=== PATIENT | female | born 1995 | race Caucasian/White ===

== ENCOUNTER 2025-02-08 16:04 | Outpatient (REF) | payer MEDICAID, SELFPAY ==
--- OUTSIDE RECORDS SUMMARY | 2025-02-08 10:20 | XMS_ITS | Encounter Summary ---
Author Organization [employer] Address [address] [facility] 7 [place] [address] Care Team Providers Care Cna Gna Name Role Phone Unavailable Primary Care Provider Unavailabl e Reason for Visit * Reason Comments UTI Symptoms Encounter Details Date Type Department Care Team (Late st Contact Info) Description 02/08/2025 10:20 AM EDT Office Visit [facility] [address] [place] [phone] Samy Han MD [address] [place] [address] Dysuria (Primary Dx); History of bilateral tubal ligation Social History Tobacco Use Types Packs/Day Years Used Date Smoking Tobacco: Never Assessed Comments Unknown Sex and Gender Information Value Date Recorded Sex Assigned at Female 02/08/2025 9:59 AM EDT Legal Sex Female 9:57 AM EDT Gender Identity Female 02/08/2025 9:59 AM EDT Sexual Orientation Straight 02/08/2025 9: 59 AM EDT documented as of this encounter Last Filed Vital Signs Vital Sign Reading Time Taken Comments Blood Pressure 129/71 02/08/2025 10:17 AM EDT Pulse 85 02/08/2025 10:17 AM EDT Temperature 36.4 C (97.5 F) 02/08/2025 10:17 AM EDT Respiratory Rate 18 02/08/2025 10:17 AM EDT Oxygen Saturation 98% 02/08/2025 10:17 AM EDT Inhaled Oxygen Concentration - - Weight 92.2 kg (203 lb 3.2 oz) 02/08/2025 10:17 AM EDT Height 152.4 cm (5') 02/08/2025 10:17 AM EDT Body Mass Index 39.68 02/08/2025 10:17 AM EDT documented in this encounter Progress Notes * Samy Han MD - 02/08/2025 10:20 AM EDT Subjective Patient ID: Sp Berg is a 29 y.o. female, new patient. Last saw PCP years ago. 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 No burning or frequency. Denies fever, chills, n/v, vaginal discharge, abdominal or flank pain. Past med history: neg Pas surgical history: BTL Family history: daughter has h/o asthma, grandmother had breast cancer in 60s or 70s. Lives with 2 children ages 11 and 8 yo in friend's house. LMP=2 weeks ago. 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 Never Smoked Occasional EtOH No Illicit substances. The following portions of the chart were reviewed this encounter and updated as appropriate: Allergies Meds Problems Med Hx Surg Hx Fam Hx Review of Systems Constitutional: Negative for fever. Respiratory: Negative for shortness of breath. Cardiovascular: Negative for chest pain. Gastrointestinal: Positive for abdominal pain. Genitourinary: Positive for dysuria and urgency. Negative for flank pain and frequency. Skin: Negative for rash. Neurological: Negative for headaches. Objective Physical Exam Constitutional: Appearance: Normal appearance. HENT: Right Ear: Tympanic membrane, ear canal and external ear normal. Left Ear: Tympanic membrane, ear canal and external ear normal. Nose: Nose normal. Mouth/Throat: Mouth: Mucous membranes are moist. Pharynx: Oropharynx is clear. Eyes: Conjunctiva/sclera: Conjunctivae normal. Pupils: Pupils are equal, round, and reactive to light. Cardiovascular: Rate and Rhythm: Normal rate and regular rhythm. Heart sounds: No murmur heard. Pulmonary: Effort: Pulmonary effort is normal. Breath sounds: Normal breath sounds. Abdominal: General: Abdomen is flat. Palpations: Abdomen is soft. Tenderness: There is no abdominal tenderness. There is no right CVA tenderness or left CVA tenderness. Musculoskeletal: General: Normal range of motion. Cervical back: No tenderness. Skin: Findings: No rash. Neurological: Mental Status: She is alert. Gait: Gait is intact. Psychiatric: Mood and Affect: Mood normal. Behavior: Behavior normal. Procedures Assessment/Plan Diagnoses and all orders for this visit: Dysuria UA: Positive nitrite, leuk Urine culture pending. Prescribed Macrobid, ibuprofen. Return to clinic if not improving or if nausea, vomiting, fever,, chills, or flank pain occurs. - POCT urinalysis dipstick manually resulted - POCT , urine manually resulted - Culture, Urine, Routine Other orders - nitrofurantoin, macrocrystal-monohydrate, (Macrobid) 100 MG capsule; Take 1 capsule (100 mg) by mouth 2 times daily for 5 days. - ibuprofen 400 MG tablet; Take 1 tablet (400 mg) by mouth every 6 (six) hours if needed for moderate pain or fever for up to 30 doses. documented in this encounter Plan of Treatment Upcoming Encounters Date Type Department Care Team (Late st Contact Info) Description 04/11/2025 10:15 AM EST Office Visit [facility] [address] [place] [address] [phone] Becka Mcconnell MD [address] [place] [phone] Scheduled Orders Name Type Priority Associated Diagnoses Orde r Schedule Culture, Urine, Routine Microbiology Routine Dysuria Ordered: 02/08/2025 documented as of this encounter Procedures Procedure Name Priority Date/Time Associated Diagnosis Comments POCT , URINE Routine 02/08/2025 11:22 AM EDT Dysuria POCT URINALYSIS DIPSTICK Routine 02/08/2025 11:22 AM EDT Dysuria documented in this encounter Results * POCT , urine manually resulted (02/08/2025 11:22 AM EDT) Preg Test, Ur Negative Negative, Indeterminate, None Detected, Invalid, Specimen unsatisfactory for evaluation, Weakly Positive, 2+ Urine 02/08/2025 11:2 2 AM EDT Samy Han MD POINT OF CARE TEST ENTER/EDIT OR DERABLES Final Result * (ABNORMAL) POCT urinalysis dipstick manually resulted (02/08/2025 11:22 AM EDT) Color, UA Yellow Clarity, UA Clear Glucose, UA Negative Bilirubin, UA Negative Ketones, UA Negative Spec Grav, UA 1.020 Blood, UA Positive(A) Negative, None Detected Comment:small pH, UA 7.0 Protein, UA Few 15 Comment:30 mg/dL Urobilinogen, UA 0.2 Leukocytes, UA Negative Negative, Rare, Trace Nitrite, UA Positive(A) Negative, None Detected Urine 02/08/2025 11:2 2 AM EDT Samy Han MD POINT OF CARE TEST ENTER/EDIT OR DERABLES Final Result documented in this encounter Visit Diagnoses Diagnosis Dysuria- Primary History of bilateral tubal ligation documented in this encounter
--- OUTSIDE RECORDS SUMMARY | 2025-02-08 18:03 | XMS_ITS | Clinical Summary ---
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 10 capsule 02/08/2025 02/14/20 25 Active ibuprofen 400 MG tablet Take 1 tablet (400 mg) by mouth every 6 (six) hours if needed for moderate pain or fever for up to 30 doses. 30 tablet 02/08/2025 Active Active Problems Problem Noted Date Diagnosed Date History of bilateral tubal ligation 02/08/2025 Encounters Date Type Department Care Team Description 02/08/2025 10:20 AM EDT Office Visit [facility] [address] [place] [address] Samy Han MD Dysuria (Primary Dx); History of bilateral tubal ligation 02/08/2025 Travel from Last 3 Months Social History Tobacco Use Types Packs/Day Years Used Date Smoking Tobacco: Never Assessed Comments Unknown Sex and Gender Information Value Date Recorded Sex Assigned at Female 02/08/2025 9:59 AM EDT Legal Sex Female 9:57 AM EDT Gender Identity Female 02/08/2025 9:59 AM EDT Sexual Orientation Straight 02/08/2025 9: 59 AM EDT Last Filed Vital Signs Vital Sign Reading [...] Mass Index 39.68 02/08/2025 10:17 AM EDT Plan of Treatment Upcoming Encounters Date Type Department Care Team (Late st Contact Info) Description 04/11/2025 10:15 AM EST Office Visit [facility] [address] [place] [address] Becka Mcconnell MD [address] [place] [address] Health Maintenance Due Date Last Done Comments Depression Screening 1993 HIV Screening 1993 SDOH Screening 1993 Disability Screening 1993 Alcohol/Substance Use Screening 2005 Tobacco Screening 2005 Family Planning (PISQ) 2008 HPV Vaccines (1 - 3-dose series) 2008 Hepatitis C Screening 09/04/2011 DTaP/Tdap/Td Vaccines (1 - Tdap) 2012 Hepatitis B Vaccines (1 of 3 - 19+ 3-dose series) 2012 Pap Smear 2014 Cervical Cancer Screening 09/04/2023 HPV/Cotest 09/04/2023 COVID-19 Vaccine (1 - 2023-2 5 season) 2025 Influenza Vaccine (#1) 2025 Zoster Vaccines (1 of 2) 09/04/2043 RSV Patients and Pa tients Aged 60 years or older (1 - 1-dose 75+ series) 2068 HIB Vaccines Aged Out No longer eligi ble based on patient's age to complete this topic Hepatitis A Vaccines Aged Out No long er eligible based on patient's age to complete this topic IPV Vaccines Aged Out No longer eligi ble based on patient's age to complete this topic Meningococcal B Vaccine Aged Out No l onger eligible based on patient's age to complete this topic Meningococcal Vaccine Aged Out No porsche dory eligible based on patient's age to complete this topic Pneumococcal Vaccine: Pediat rics (0 to 5 Years) and At-Risk Patients (6 to 49) Years Aged Out No longer eligible b ased on patient's age to complete this topic RSV under 20 months Aged Out No longe r eligible based on patient's age to complete this topic Rotavirus Vaccines Aged Out No longer eligible based on patient's age to complete this topic Procedures Procedure Name Priority Date/Time Associated Diagnosis Comments POCT , URINE Routine 02/08/2025 11:22 AM EDT Dysuria POCT URINALYSIS DIPSTICK Routine 02/08/2025 11:22 AM EDT Dysuria from Last 3 Months Results * POCT , urine manually resulted (02/08/2025 11:22 AM EDT) Preg Test, Ur Negative Negative, Indeterminate, None Detected, Invalid, Specimen unsatisfactory for evaluation, Weakly Positive, 2+ Urine 02/08/2025 11:2 2 AM EDT us Samy Han MD POINT OF CARE TEST [...] Detected Urine 02/08/2025 11:2 2 AM EDT us Samy Han MD POINT OF CARE TEST ENTER/EDIT OR DERABLES Final Result from Last 3 Months Insurance [facility] STANDARD
--- OUTSIDE RECORDS SUMMARY | 2025-02-08 18:04 | XMS_ITS | Encounter Summary ---
Author Organization [email or web address] Address [address] [place] [address] 7 [place] [address] Care Team Providers Care It Software Engineer Name Role Phone Unavailable Primary Care Provider Unavailabl e Encounter Details Date Type Department Care Team (Latest Contact Info) Description 02/08/2025 Travel Social History Tobacco Use Types Packs/Day Years Used Date Smoking Tobacco: Never Assessed Comments Unknown Sex and Gender Information Value Date Recorded Sex Assigned at Female 02/08/2025 9:59 AM EDT Legal Sex Female 9:57 AM EDT Gender Identity Female 02/08/2025 9:59 AM EDT Sexual Orientation Straight 02/08/2025 9: 59 AM EDT documented as of this encounter Plan of Treatment Upcoming Encounters Date Type Department Care Team (Late st Contact Info) Description 04/11/2025 10:15 AM EST Office Visit [facility] [address] [place] [address] Becka Mcconnell MD [address] [place] [address] documented as of this encounter Visit Diagnoses Not on filedocumented in this encounter
== END 2025-02-08 16:05 | disposition home or self-care (01) ==
LOC: HO.HHCLNP 16:04
PROVIDERS: Visit Provider Emergency Medicine
DX: R30.0 Dysuria (principal)
CPT/HCPCS: 87086; 87088; 87186

== ENCOUNTER 2025-03-07 15:46 | Outpatient (REF) | payer MEDICAID, SELFPAY ==
--- OUTSIDE RECORDS SUMMARY | 2025-03-07 20:44 | XMS_ITS | Encounter Summary ---
Author Organization [employer] Address [address] [place] [address] [place] [address] Care Team Providers Care Intelligence Applications Name Role Phone Unavailable Primary Care Provider Unavailabl e Encounter Details Date Type Department Care Team (Late st Contact Info) Description 03/07/2025 Orders Only [facility] [address] [place] [phone] Sebastian Graham MD [address] [place] [address] [phone] Screening for tuberculosis (Primary Dx) Social History Tobacco Use Types Packs/Day Years Used Date Smoking Tobacco: Never Assessed Comments Unknown Sex and Gender Information Value Date Recorded Sex Assigned at Female 02/08/2025 9:59 AM EDT Legal Sex Female 9:57 AM EDT Gender Identity Female 02/08/2025 9:59 AM EDT Sexual Orientation Straight 02/08/2025 9: 59 AM EDT documented as of this encounter Progress Notes * Kathleen Fournier RN - 03/07/2025 3:26 PM EDT T-Spot entered, patient needs for work documented in this encounter Plan of Treatment Upcoming Encounters Date Type Department Care Team (Late st Contact Info) Description 04/11/2025 10:15 AM EST Office Visit [facility] [address] [place] [address] [phone] Becka Mcconnell MD [address] [place] [address] [phone] Scheduled Orders Name Type Priority Associated Diagnoses Orde r Schedule T-SPOT .TB Lab Routine Screening for tuberculosis Expected: 03/07/2025 (Approximate), Expires: 03/07/2026 documented as of this encounter Visit Diagnoses Diagnosis Screening for tuberculosis- Primary Screening examination for pulmonary tuberculosis documented in this encounter
--- OUTSIDE RECORDS SUMMARY | 2025-03-07 20:44 | XMS_ITS | Clinical Summary ---
Author Organization [employer] Address [address] [facility] 7t [place] [address] Care Team Providers Care Injection Machine Operator Name Role Phone Unavailable Primary Care Provider Unavailabl e Allergies Active Allergy Reactions Criticality Noted Date Comments Acetaminophen Swelling 02/08/2025 Medications ibuprofen 400 MG tablet Take 1 tablet (400 mg) by mouth every 6 (six) hours if needed for moderate pain or fever for up to 30 doses. 30 tablet 5 Active nitrofurantoin, macrocrystal-mo nohydrate, (Macrobid) 100 MG capsule Take 1 capsule (100 mg) by mouth 2 times daily for 5 days. 10 capsule 5 02/14/20 25 benzonatate (Tessalon Perles) 100 MG capsuleIndicati ons:Viral URI with cough Take 1 capsule (100 mg) by mouth if needed in the morning, at noon, and at bedtime for cough for up to 7 days. Do not crush or chew. 20 capsule 5 03/02/20 25 Active Problems Problem Noted Date Diagnosed Date History of bilateral tubal ligation 02/08/2025 Encounters Date Type Department Care Team Description 03/07/2025 Orders Only [facility] [address] [place] [phone] Sebastian Graham MD Screening for tuberculosis (Primary Dx) 02/23/2025 10:00 AM EDT Office Visit [facility] [address] [place] [address] Sebastian Graham MD Viral URI with cough 02/23/2025 Travel 02/14/2025 Orders Only [facility] [address] [place] [phone] Devi Plummer RN 02/08/2025 10:20 AM EDT Office Visit [facility] [address] [place] [phone] Samy Han MD Dysuria (Primary Dx); History [...] Sign Reading Time Taken Comments Blood Pressure 139/80 02/23/2025 9:36 AM EDT Pulse 101 02/23/2025 9:36 AM EDT Temperature 36.7 C (98 F) 02/23/2025 9:36 AM EDT Respiratory Rate 18 02/23/2025 9:36 AM EDT Oxygen Saturation 99% 02/23/2025 9:36 AM EDT Inhaled Oxygen Concentration - - Weight 91.6 kg (202 lb) 02/23/2025 9:36 AM EDT Height 152.4 cm (5') 02/08/2025 10:17 AM EDT Body Mass Index 39.45 02/08/2025 10:17 AM EDT Plan of Treatment Upcoming Encounters Date Type Department Care Team (Late st Contact Info) Description 04/11/2025 10:15 AM EST Office Visit [facility] [address] [place] [phone] Becka Mcconnell MD [address] [place] [phone] Health Maintenance Due Date Last Done Comments Depression Screening 1993 SDOH Screening 1993 Disability Screening 1993 Alcohol/Substance Use Screening 2005 Tobacco Screening 2005 Family Planning (PISQ) 2008 HPV Vaccines (1 - 3-dose series) 2008 DTaP/Tdap/Td Vaccines (1 - Tdap) 2012 Hepatitis B Vaccines (1 of 3 - 19+ 3-dose series) 2012 Pap Smear 2014 Cervical Cancer Screening 09/04/2023 HPV/Cotest 09/04/2023 COVID-19 Vaccine (1 - 2023-2 5 season) 2025 Influenza Vaccine (#1) 2025 Zoster Vaccines (1 of 2) 09/04/2043 RSV Patients and Pa tients Aged 60 years or older (1 - 1-dose 75+ series) 2068 HIV Screening Completed 02/08/2025 Hepatitis C Screening Completed 02/08/2025 HIB Vaccines Aged Out No longer eligi [...] to 49) Years Aged Out No longer eligi ble based on patient's age to complete this topic RSV under 20 months Aged Out No longe r eligible based on patient's age to complete this topic Rotavirus Vaccines Aged Out No longer eligible based on patient's age to complete this topic Procedures Procedure Name Priority Date/Time Associated Diagnosis Comments POCT INFLUENZA B (ID NOW RAPID MOLECULAR) Routine 02/23/2025 9:57 AM EDT Viral URI with cough POCT INFLUENZA A (ID NOW RAPID MOLECULAR) Routine 02/23/2025 9:57 AM EDT Viral URI with cough POCT RAPID STREP A Routine 02/23/2025 9: 40 AM EDT Viral URI with cough POCT RAPID COVID ANTIGEN Routine 02/23/2025 9:40 AM EDT Viral URI with cough POCT , URINE Routine 02/08/2025 11:22 AM EDT Dysuria POCT URINALYSIS DIPSTICK Routine 02/08/2025 11:22 AM EDT Dysuria CULTURE, URINE, ROUTINE Routine 02/08/2025 11:13 AM EDT Dysuria HIV ANTIBODY/ANTIGEN ([place] [facility]) Routine 02/08/2025 HEPATITIS C ANTIBODY ([place] [facility]) Routine 02/08/2025 SYPHILIS ABS ([place] [facility]) Routine 02/08/2025 CHLAMYDIA/GONORRHEA THROAT SWAB ([place] [facility]) Routine 02/08/2025 CHLAMYDIA/GONORRHEA VAGINAL SWAB ([place] [facility]) Routine 02/08/2025 from Last 3 Months Results * Influenza B (ID NOW Rapid Molecular) (02/23/2025 9:57 AM EDT) Influenza B Negative Negative, Indeterminate [facility] Swab 02/23/2025 9:57 AM EDT us Sebastian Graham MD POINT OF CARE TEST ENTER/EDIT OR DERABLES Final Result Performing Organization Address [facility] Co de Phone Number [facility] [address] [place] [phone] * Influenza A (ID NOW Rapid Molecular) (02/23/2025 9:57 AM EDT) Influenza A Negative Negative, Indeterminate [facility] Swab 02/23/2025 9:57 AM EDT us Sebastian Graham MD POINT OF CARE TEST ENTER/EDIT OR DERABLES Final Result Performing Organization Address [facility] Co de Phone Number [facility] [address] [place] [phone] * POCT Rapid COVID Ag (02/23/2025 9:40 AM EDT) [facility] Rapid COVID Ag Negative Swab 02/23/2025 9:40 AM EDT us Sebastian Graham MD POINT OF CARE TEST ENTER/EDIT OR DERABLES Final Result * POCT rapid strep A manually resulted (02/23/2025 9:40 AM EDT) [facility] Rapid Strep A Screen Negative Negative, None Detected Swab 02/23/2025 9:40 AM EDT us Sebastian Graham MD POINT OF CARE TEST ENTER/EDIT OR DERABLES Final Result * POCT , urine manually resulted (02/08/2025 11:22 AM EDT) [facility] Preg Test, Ur Negative Negative, Indeterminate, None Detected, Invalid, Specimen unsatisfactory for evaluation, Weakly Positive, 2+ Urine 02/08/2025 11:2 2 AM EDT Result Pedrito Han MD POINT OF CARE TEST ENTER/EDIT OR DERABLES Final Result * (ABNORMAL) POCT urinalysis dipstick manually resulted (02/08/2025 11:22 AM EDT) [facility] Color, UA Yellow Clarity, UA Clear Glucose, [...] TEST ENTER/EDIT OR DERABLES Final Result * Culture, Urine, Routine (02/08/2025 11:13 AM EDT) Urine Urine specimen obtained by clean catch procedure / Unknown 02/08/2025 11:13 AM EDT 02/08/2025 4:06 PM EDT Comment:[facility] Narrative [facility] - 02/11/2025 8:47 AM EDT Escherichia coli Quant > 100,000 cfu/mL Escherichia coli: Ampicillin <=2(S) Escherichia coli: Cefazolin (Urine) <=1(S) Escherichia coli: Cefepime <=0.12(S) Escherichia coli: Ceftriaxone <=0.25(S) Escherichia coli: Ciprofloxacin <=0.06(S) Escherichia coli: Gentamicin <=1(S) Escherichia coli: Nitrofurantoin <=16(S) Escherichia coli: Trimethoprim/Sulfamethoxazole >=320(R) Specimen Source: Urine clean catch Samy Han MD LAB MICROBIOLOGY - GENERAL ORDER SHIVA Final Result Performing Organization Address City/State/[facility] Co de Phone Number [facility] [address] [place] [phone] * Chlamydia/Gonorrhea Vaginal Swab ([place] [facility]) (02/08/2025) Chlamydia Vaginal Swab Negative Negative, Indeterminate, None Detected, Invalid, Specimen unsatisfactory for evaluation, Weakly Positive, 2+ Gonorrhea Vaginal Swab Negative Negative, Indeterminate, None Detected, Invalid, Specimen unsatisfactory for evaluation, Weakly Positive, 2+ Swab Vaginal structure / Unknown 02/08/2025 [facility] Provider LAB MICROBIOLOGY - GENERA L ORDERABLES Final Result * Chlamydia/Gonorrhea Throat Swab ([place] [facility]) (02/08/2025) Chlamydia Throat Swab Negative Gonorrhea Throat Swab Negative Swab 02/08/2025 [facility] Provider LAB MICROBIOLOGY - GENERA L ORDERABLES Final Result * Syphilis Antibodies (DPH) (02/08/2025) Syphilis Abs Nonreactive Borderline, Nonreactive, Weakly Reactive, Inconclusive, Specimen unsatisfactory for evaluation Blood Venous blood specimen / Unknown 02/08/2025 [facility] Provider MD LAB BLOOD ORDERABLES [place] Result * Hepatitis C Antibody ([facility]) (02/08/2025) Hepatitis C Ab Nonreactive Blood 02/08/2025 Result [facility] Provider LAB BLOOD ORDERABLES [place] Result * HIV Ab/Ag ([facility]) (02/08/2025) HIV Ag/Ab Nonreactive Blood 02/08/2025 Result [facility] Provider LAB BLOOD ORDERABLES [place] Result from Last 3 Months Insurance [facility] STANDARD
[2025-03-09 20:52] LABS: TS Negative Control Passed; TS Panel A 0; TS Panel B 2; TS Positive Control Passed; TSpotTB Negative (Negative)
== END 2025-03-07 15:47 | disposition home or self-care (01) ==
LOC: HO.HHCL 15:46
PROVIDERS: Visit Provider Family Medicine
DX: Z11.1 Encounter for screening for respiratory tuberculosis (principal)
CPT/HCPCS: 36415; 86481

== ENCOUNTER 2025-04-17 10:02 | Outpatient (REF) | payer MEDICAID, SELFPAY ==
[2025-04-17 11:14] LABS: MANUAL DIFF FLAG NO
[2025-04-17 11:28] LABS: Hematocrit 42.5 % (37.0-47.0); Hemoglobin 13.6 g/dl (12.0-16.0); Imm Gran Abs Auto 0.05 X10*3/uL (0.00-0.03); Imm Gran Pct Auto 0.6 % (0.0-0.4); Lymphocytes Absolute Auto 1.9 X10*3/uL (1.2-4.9); Mean Corpuscular HGB Conc 32.0 g/dl (31.0-35.0); Mean Corpuscular Hemoglobin 28.6 pg (27.0-33.0); Mean Corpuscular Volume 89.3 fL (80.0-98.0); NRBC Abs Auto 0.000 X10*3/uL (0.0-0.012); NRBC Pct Auto 0.0 /100WBC (0.0-0.2); Platelet Count 353 X10*3/uL (160-400); Red Blood Count 4.76 X10*6/uL (4.20-5.50); White Blood Count 8.3 X10*3/uL (4.8-10.8)
--- OUTSIDE RECORDS SUMMARY | 2025-04-17 12:14 | XMS_ITS | Clinical Summary ---
Author Organization [employer] Address [address] [place] [address] 7 [place] [address] Care Team Providers Care Real Estate Broker Name Role Phone Becka Mcconnell MD Primary Care Provide r Allergies Active Allergy Reactions Criticality Noted Date Comments Acetaminophen Swelling 02/08/2025 Medications ibuprofen 400 MG tablet Take 1 tablet (400 mg) by mouth every 6 (six) hours if needed for moderate pain or fever for up to 30 doses. 30 tablet Active carbamide peroxide (Debrox) 6.5 % otic solutionIndicat ions:Impacted cerumen of right ear Administer 5-10 drops into affected ear(s) 2 times daily for 4 days. 30 mL 04/11/2025 1:48 PM EST 04/15/20 Active Problems Problem Noted Date Diagnosed Date Cerumen impaction 04/11/2025 Hypersomnia 04/11/2025 Depression with anxiety 04/11/2025 History of bilateral tubal ligation 02/08/2025 Encounters Date Type Department Care Team Description 04/11/2025 10:15 AM EST Office Visit [facility] [address] [place] [phone] Becka Mcconnell MD Impacted cerumen of right ear; Hypersomnia; Depression with anxiety; Encounter for immunization 04/11/2025 Travel 04/10/2025 Telephone [facility] [address] [place] [phone] Sivan Jean DO Chart Prep 04/04/2025 Travel 04/03/2025 Patient Outreach [facility] [address] [place] [phone] Becka Mcconnell MD Care Coordination (CHW outreach for SDOH housing search-referral completed ) 04/03/2025 Patient Outreach [facility] [address] [place] [phone] Becka Mcconnell MD Pre-visit Planning (SDOH screening negative and tobacco screening negative) 03/07/2025 Orders Only [facility] [address] [place] [phone] Sebastian Graham MD Screening for tuberculosis (Primary Dx) 02/23/2025 10:00 AM EDT [facility] [address] [address] Sebastian Graham MD Viral URI with cough 02/23/2025 Travel 02/14/2025 Orders Only [facility] [address] [place] [phone] Devi Plummer RN 02/08/2025 10:20 AM EDT [facility] [address] [address] Samy Han MD Dysuria (Primary Dx); History of bilateral tubal ligation 02/08/2025 Travel from Last 3 Months Immunizations Immunization Administration Dates Next Due Influenza, seasonal, injectable, preservative fr ee 04/11/2025 Pfizer Covid-19 Vaccine 12+ 04/11/2025 Social History Tobacco Use Types Packs/Day Years Used Date Smoking Tobacco: Never Tobacco Cessation:Counseling Given: Not Answered Depression Answer Date Recorded Patient Health Questionnaire-9 Score 9 04/11/2025 Patient Health Questionnaire-9 Score 9 04/11/2025 Last PHQ-9: Questionnaire Data Not on file 1 06/11/2024 Housing Stability Answer Date Recorded What is your housing situation today? I do not have housing (Staying with others, in a hotel, in a skilled nursing, living outside on the street, on a beach, in a car, or in a park 04/03/[address] you li ve. Do you have problems with any of the following? None of the above 04/03/2025 Food Insecurity Answer Date Recorded Within the past 12 months, y ou worried that your food would run out before you got money to buy more: Never True 04/03/2025 Within the past 12 months,th e food you bought just didn't last and you didn't have enough money to get more: Never True Transportation Answer Date Recorded In the past 12 months, has l ack of transportation kept you from medical appts, meetings, work or from getting things needed for daily living? No 04/03/2025 Utilities Answer Date Recorded In the past 12 months, has t he electric, gas, oil or water company threatened to shut off services in your home? No 04/03/2025 Depression Answer Date Recorded Patient Health Questionnaire-2 Score 1 04/11/2025 Internet Access Answer Date Recorded Internet Access Q1 Yes 04/03/2025 Internet Access Q2 Not on file 04/03/2025 Comments Unknown Sex and Gender Information Value Date Recorded Sex Assigned at Female 02/08/2025 9:59 AM EDT Legal Sex Female 9:57 AM EDT Gender Identity Female 02/08/2025 9:59 AM EDT Sexual Orientation Straight 02/08/2025 9: 59 AM EDT Last Filed Vital Signs Vital Sign Reading Time Taken Comments Blood Pressure 130/90 04/11/2025 10:27 AM EST Pulse 99 04/11/2025 10:27 AM EST Temperature 35.8 C (96.5 F) 04/11/2025 10:27 AM EST Respiratory Rate 17 04/11/2025 10:27 AM EST Oxygen Saturation 99% 04/11/2025 10:27 AM EST Inhaled Oxygen Concentration - - Weight 94.9 kg (209 lb 3.2 oz) 04/11/2025 10:27 AM EST Height 152.4 cm (5') 04/11/2025 10:27 AM EST Body Mass Index 40.86 04/11/2025 10:27 AM EST Plan of Treatment Upcoming Encounters Date Type Department Care Team (Late st Contact Info) Description 04/19/2025 11:00 AM EST Clinical Support [facility] [address] [place] [phone] 05/15/2025 10:00 AM EST Telemedicine [facility] [address] [place] [phone] Becka Mcconnell MD [address] [place] [address] Health Maintenance Due Date Last Done Comments Family Planning (PISQ) 2008 HPV Vaccines (1 - 3-dose series) 2008 DTaP/Tdap/Td Vaccines (1 - Tdap) 2012 Hepatitis B Vaccines (1 of 3 - 19+ 3-dose series) 2012 Pap Smear 2014 Cervical Cancer Screening 09/04/2023 HPV/Cotest 09/04/2023 Depression Monitoring 10/09/2025 04/11/2025 , 04/11/2025 SDOH Screening 04/03/2026 04/03/2025 Disability Screening 04/06/2026 04/06/2025 Alcohol/Substance Use Screening 04/11/2026 04/11/2025 Tobacco Screening 04/11/2026 04/11/2025 Zoster Vaccines (1 of 2) 09/04/2043 RSV Patients and Patients Aged 60 years or older (1 - 1-dose 75+ series) 2068 HIV Screening Completed 02/08/2025 Hepatitis C Screening Completed 02/08/2025 COVID-19 Vaccine Completed 04/11/2025 Influenza Vaccine Completed 04/11/2025 HIB Vaccines Aged Out No longer eligi [...] age to complete this topic Pneumococcal Vaccine: Pediatrics (0 to 5 Years) and At-Risk Patients [...] Procedure Name Priority Date/Time Associated Diagnosis Comments HEMOGLOBIN A1C Routine 04/17/2025 10:15 AM EST Hypersomnia CBC WITH AUTO DIFFERENTIAL Routine 04/17/2025 10:15 AM EST Hypersomnia T-SPOT(R).TB Routine 03/07/2025 3:50 PM EDT Screening for tuberculosis POCT INFLUENZA B (ID NOW RAPID MOLECULAR) [...] 02/08/2025 from Last 3 Months Results * (ABNORMAL) CBC auto differential (04/17/2025 10:15 AM EST) [facility] White Blood Count 8.3 4.8 - 10.8 X10*3/uL [facility] Red Blood Count 4.76 4.20 - 5.50 X10*6/uL [facility] Hemoglobin 13.6 12.0 - 16.0 g/dl [facility] Hematocrit 42.5 37.0 - 47.0 % [facility] Mean Corpuscular Volume 89.3 80.0 - 98.0 fL [facility] Mean Corpuscular Hemoglobin 28.6 27.0 - 33.0 pg [facility] Mean Corpuscular HGB Conc 32.0 31.0 - 35.0 g/dl [facility] Red Cell Distribution Width 13.8 11.0 - 16.0 % [facility] Platelet Count 353 160 - 400 X10*3/uL [facility] Mean Platelet Volume 10.7 9.4 - 12.3 fL [facility] Neutrophils Percent Auto 67.8 45 - 73 % [facility] Imm Gran Pct Auto 0.6(H) 0.0 - 0.4 % [facility] Lymphocytes Percent Auto 22.4 20 - 40 % [facility] Monocytes Percent Auto 5.5 2 - 11 % [facility] Eosinophils Percent Auto 3.3 0 - 4 % [facility] Basophils Percent Auto 0.4 0 - 2 % [facility] NRBC Pct Auto 0.0 0.0 - 0.2 /100WBC [facility] Neutrophils Absolute Auto 5.6 2.0 - 8.3 x10*3/uL [facility] Imm Gran Abs Auto 0.05(H) 0.00 - 0.03 X10*3/uL [facility] Lymphocytes Absolute Auto 1.9 1.2 - 4.9 X10*3/uL [facility] Monocytes Absolute Auto 0.5 0.1 - 1.2 X10*3/uL [facility] Eosinophils Absolute Auto 0.3 0.0 - 0.4 X10*3/uL [facility] Basophils Absolute Auto 0.0 0.0 - 0.2 X10*3/uL [facility] NRBC Abs Auto 0.000 0.0 - 0.012 X10*3/uL [facility] Blood Venous blood specimen / Unknown 04/17/2025 10:15 AM EST 04/17/2025 11:10 AM EST Becka Woods MD LAB BLOOD ORDERABLES Final Result Performing Organization Address [facility] Co de Phone Number [facility] [address] [place] [phone] * Hemoglobin A1c (04/17/2025 10:15 AM EST) Hemoglobin A1c 5.4 <6.0 % [facility] Comment:Hemoglobin A1C Refer ence Range Adults: 4.8 - 6.0 % Non diabetic: < 6.0 % Goal: < 7.0 %Additional Action Suggested: > 8.0 %Note: Hemoglobin A1c results are invalid for patients with abnormal amounts of HbF. Blood transfusions may impact the HbA1c concentration in the patient sample. Estimated Average Glucose 108 mg/dL [facility] Comment:eAG = Estimated ave rage glucose which is %A1C expressed asaverage glucose, using the formula of the [id number] Glucose study (ADAG), Diabetes Care, Vol.31,#8,Dec. 2007 Blood Venous blood specimen / Unknown 04/17/2025 10:15 AM EST 04/17/2025 11:10 AM EST us Becka Woods MD LAB BLOOD ORDERABLES Final Result Performing Organization Address [facility] Co de Phone Number [facility] [address] [place] [phone] * T-SPOT??.TB (03/07/2025 3:50 PM EDT) T Spot TB Negative Negative [facility] Comment:A negative test resu lt does not exclude the possibilityof exposure to or infection with Mycobacteriumtuberculosis (M. tuberculosis). Patients with recentexposure to TB infected individuals exhibiting anegative T-SPOT.TB result should be considered forretesting within 6 weeks or if other relevant clinicalsymptoms indicate. Results from T-SPOT.TB testing mustbe used in conjunction with each individual'sepidemiological history, current medical status,and results of other diagnostic evaluations.The T-SPOT.TB test is qualitative and results arereported as positive, borderline, or negative, giventhat the test controls perform as expected. In linewith the Centers for Disease Control and Prevention's2010 recommendation to report quantitative measurementsalongside the qualitative result, the laboratoryprovides spot counts for informational purposes only.The T-SPOT.TB test should not be interpreted as aquantitative test. TS PANEL A 0 [facility] TS PANEL B 2 [facility] Negative Control Passed [facility] Positive Control Passed [facility] Comment:For additional infor neto, please refer tohttp://education.Yieldbot/faq/IYR042(This link is being provided for informational/educational purposes only.)THIS TEST WAS PERFORMED AT:[employer] [id number] [place] [id number] BRENNER MD,PHD 03/07/2025 3:50 PM EDT 03/07/2025 5:03 PM EDT Sebastian Graham MD LAB BLOOD ORDERABLES Final Resul t Performing Organization Address [facility]/ZIP Co de Phone Number [facility] [address] [place] [phone] * Influenza B (ID NOW Rapid Molecular) (02/23/2025 9:57 AM EDT) Influenza B Negative Negative, Indeterminate [facility] Swab 02/23/2025 9:57 AM EDT Sebastian Graham MD POINT OF CARE TEST ENTER/EDIT OR DERABLES Final Result Performing Organization Address [facility] Co de Phone Number [facility] [address] [place] [phone] * Influenza A (ID NOW Rapid Molecular) (02/23/2025 9:57 AM EDT) [facility] Influenza A Negative Negative, Indeterminate [facility] Swab 02/23/2025 9:57 AM EDT us Sebastian Graham MD POINT OF CARE TEST ENTER/EDIT OR DERABLES Final Result [facility] [address] [place] [phone] * POCT Rapid COVID Ag (02/23/2025 9:40 AM EDT) [facility] Rapid COVID Ag Negative Swab 02/23/2025 9:40 AM EDT us Sebastian Graham MD POINT OF CARE TEST ENTER/EDIT OR DERABLES Final Result * POCT rapid strep A manually resulted (02/23/2025 9:40 AM EDT) [facility] Rapid Strep A Screen Negative Negative, None Detected Swab 02/23/2025 9:40 AM EDT us Sebastian Graham MD POINT OF CARE TEST ENTER/EDIT OR DERABLES Final Result * POCT , urine manually resulted (02/08/2025 11:22 AM EDT) [facility] Preg Test, Ur Negative Negative, Indeterminate, None [...] 11:13 AM EDT 02/08/2025 4:06 PM EDT Comment:UACC Narrative [facility] - 02/11/2025 8:47 AM EDT Escherichia coli Quant > 100,000 cfu/mL Escherichia coli: Ampicillin <=2(S) Escherichia coli: Cefazolin (Urine) <=1(S) Escherichia coli: Cefepime <=0.12(S) Escherichia coli: Ceftriaxone <=0.25(S) Escherichia coli: Ciprofloxacin <=0.06(S) Escherichia coli: Gentamicin <=1(S) Escherichia coli: Nitrofurantoin <=16(S) Escherichia coli: Trimethoprim/Sulfamethoxazole >=320(R) Specimen Source: Urine clean catch us Samy Han MD LAB MICROBIOLOGY - GENERAL ORDER SHIVA Final Result [facility] [address] [place] [phone] [phone] * Chlamydia/Gonorrhea Vaginal Swab ([facility]) (02/08/2025) Chlamydia Vaginal Swab Negative Negative, Indeterminate, None Detected, Invalid, Specimen unsatisfactory for evaluation, Weakly Positive, 2+ Gonorrhea Vaginal Swab Negative Negative, Indeterminate, None Detected, Invalid, Specimen unsatisfactory for evaluation, Weakly Positive, 2+ Swab Vaginal structure / Unknown 02/08/2025 Result [facility] Provider MD LAB MICROBIOLOGY - GENERA L ORDERABLES Final Result * Chlamydia/Gonorrhea Throat Swab ([facility]) (02/08/2025) Chlamydia Throat Swab Negative Gonorrhea Throat Swab Negative Swab 02/08/2025 Result [facility] Provider MD LAB MICROBIOLOGY - GENERA L ORDERABLES Final Result * Syphilis Antibodies ([facility]) (02/08/2025) Syphilis Abs Nonreactive Borderline, Nonreactive, Weakly Reactive, Inconclusive, Specimen unsatisfactory for evaluation Blood Venous blood specimen / Unknown 02/08/2025 Result [facility] Provider MD LAB BLOOD ORDERABLES [place] Result * Hepatitis C Antibody ([facility]) (02/08/2025) Hepatitis C Ab Nonreactive Blood 02/08/2025 Result [facility] Provider MD LAB BLOOD ORDERABLES [place] Result * HIV Ab/Ag ([facility]) (02/08/2025) Pathologist [facility] HIV Ag/Ab Nonreactive Blood 02/08/2025 Result [facility] Provider MD LAB BLOOD ORDERABLES [place] Result from Last 3 Months Insurance [facility] Care Teams Real Estate Broker Relationship Specialty Start Date End Date Becka Mcconnell MD [address] [place] [address] PCP - General Internal Medicine 04/11/25
[2025-04-17 12:35] LABS: Alanine Aminotransferase 26 U/L (0-31); Albumin Level 4.4 g/dL (3.5-5.0); Alkaline Phosphatase 90 U/L (39-117); Anion Gap 10 (12-20); Aspartate Amino Transferase 24 U/L (5-31); Blood Urea Nitrogen 14 mg/dL (9-16); Calcium 9.3 mg/dL (8.4-10.2); Carbon Dioxide 28 mmol/L (22-29); Chloride 109 mmol/L (96-108); Cholesterol 165 mg/dL (<200); Estimated Glomerular Filt Rate > 60; HDL Cholesterol 50 mg/dL (>40); Potassium 4.5 mmol/L (3.3-5.1); Sodium 142 mmol/L (135-145); Total Protein 7.7 g/dL (6.5-8.0); Triglycerides 108 mg/dL (<150)
[2025-04-17 12:36] LABS: HIV Num 1 0.06 S/CO (0.00-0.99); ~HepC Num1 0.12 S/CO (0.00-0.79); ~Hepatitis C Antibody Nonreactive (Nonreactive)
[2025-04-17 14:25] LABS: Free T4 (Free Thyroxine) 0.89 ng/dL (0.71-1.85)
== END 2025-04-17 10:03 | disposition home or self-care (01) ==
LOC: HO.HHCL 10:02
PROVIDERS: PCP Internal Medicine; Visit Provider Internal Medicine
DX: Z11.4 Encounter for screening for human immunodeficiency virus [HIV] (principal); Z11.59 Encounter for screening for other viral diseases; G47.10 Hypersomnia, unspecified
CPT/HCPCS: 36415; 80053; 80061; 82306; 83036; 84439; 84443; 85025; 86803; 87389